=== PATIENT | female | born 1970 ===

== ENCOUNTER 2017-03-24 11:38 | Emergency (ER) | payer OTHER ==
[2017-03-24 11:43] VITALS: BMI 26.4
[2017-03-24 11:44] VITALS: BP 132/90; PULSE 90; RESP 18; TEMP 98.5; O2SAT 100
--- NOTE | 2017-03-24 12:18 | C.PDOC ---
History Of Present Illness Pt c/o left eye redness this morning. She has been having URI symptoms for the past 3 days. Time Seen by Provider: 03/24/17 12:07 Chief Complaint (Nursing): ENT Problem History Per: Patient Current Symptoms Are (Timing): Still Present Injury To Eye?: No Severity: Moderate Associated Symptoms: Other (Redness/irritation) Additional History Per: Prior Records Past Medical History Reviewed: Historical Data, Nursing Documentation, Vital Signs Vital Signs: Last Vital Signs Temp 98.5 F 03/24/17 11:43 Pulse 90 03/24/17 11:43 Resp 18 03/24/17 11:43 BP 132/90 03/24/17 11:43 Pulse Ox 100 03/24/17 11:43 - Medical History PMH: Migraine - [facility] Procedures APPLICATION OF SPLINT (06/26/14) DX ULTRASOUND NEC (01/14/13) OTHER THERAPEUTIC APHERESIS (01/14/13) SOFT TISSUE INJECT NEC (01/14/13) Family History: States: Unknown Family Hx - Social History Hx Tobacco Use: No Hx Alcohol Use: No Hx Substance Use: No - Immunization History Hx Tetanus Toxoid Vaccination: Yes Hx Influenza Vaccination: Yes Hx Pneumococcal Vaccination: No Review Of Systems Except As Marked, All Systems Reviewed And Found Negative. Constitutional: Negative for: Fever, Weakness Eyes: Positive for: Conjunctivae Inflammation (left) ENT: Positive for: Ear Pain, Nose Congestion, Throat Pain. Negative for: Ear Discharge Cardiovascular: Negative for: Chest Pain Respiratory: Positive for: Cough. Negative for: Shortness of Breath Gastrointestinal: Negative for: Vomiting, Abdominal Pain Musculoskeletal: Negative for: Neck Pain Skin: Negative for: Rash Neurological: Negative for: Weakness, Numbness, Seizures Physical Exam - Physical Exam Appears: Non-toxic, No Acute Distress Skin: Normal Color, Warm, Dry, No Rash Head: Atraumatic, Normacephalic Eye(s): bilateral: PERRL, EOMI, left: Other (Conjunctival injection) Ear(s): Bilateral: Normal Oral Mucosa: Moist, No Drooling, No Trismus Throat: Normal Neck: Normal ROM, Supple Lymphatic: No Adenopathy Cardiovascular: Rhythm Regular Respiratory: Normal Breath Sounds, No Accessory Muscle Use Gastrointestinal/Abdominal: Soft, No Tenderness Back: No CVA Tenderness Extremity: Normal ROM Neurological/Psych: Oriented x3, Normal Speech, Normal Motor, Normal Sensation ED Course And Treatment O2 Sat by Pulse Oximetry: 100 Pulse Ox Interpretation: Normal Disposition Counseled Patient/Family Regarding: Diagnosis, Need For Followup, Rx Given - Disposition Referrals: Jacobo Moran MD [Staff Provider] - Disposition: HOME/ ROUTINE Disposition Time: 12:19 Condition: STABLE Additional Instructions: Follow up with employee health. Return to the ER if you develop shortness of breath, worsening of symptoms or if you have any other concerns. Prescriptions: Polymyxin/Trimethoprim Sulfate [Polytrim Ophth Soln] 1 - 2 drop OS QID #1 bottle Instructions: Conjunctivitis (ED) Forms: [employer] [facility] (Arabic) - Clinical Impression Clinical Impression: URI (upper respiratory infection), Conjunctivitis, left eye
== END 2017-03-24 12:30 | disposition home or self-care (01) ==
LOC: C.ER 11:38
DX: J06.9 Acute upper respiratory infection, unspecified (principal); H10.9 Unspecified conjunctivitis

== ENCOUNTER 2017-03-25 08:16 | Emergency (ER) | payer OTHER ==
[2017-03-25 08:16] VITALS: BMI 26.4
[2017-03-25 08:29] VITALS: BP 131/98; PULSE 93; RESP 16; TEMP 98.5; O2SAT 98
--- NOTE | 2017-03-25 08:48 | C.PDOC ---
History Of Present Illness 46 y/o female, eveluated in ER and discharged yesterday for conjunctivitis, presents to ED with c/o right eye redness. Patient states she was prescribed eyedrops and is asking if she should apply to the right eye now. 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 Denies fever, chills, headache, visual changes, discharge from eye, cough, nausea, vomiting, or other associated symptoms. Time Seen by Provider: 03/25/17 08:19 Chief Complaint (Nursing): ENT Problem History Per: Patient History/Exam Limitations: no limitations Onset/Duration Of Symptoms: Days Current Symptoms Are (Timing): Still Present Injury To Eye?: No Wears Contact Lens?: No Recent travel outside of the [place]: No Past Medical History Reviewed: Historical Data, Nursing Documentation, Vital Signs Vital Signs: Last Vital Signs Temp 98.5 F 03/25/17 08:25 Pulse 93 H 03/25/17 08:25 Resp 16 03/25/17 08:25 BP 131/98 H 03/25/17 08:25 Pulse Ox 98 03/25/17 08:59 - Medical History PMH: No Chronic Diseases, Migraine Denies: Chronic Kidney Disease Surgical History: No Surg Hx - [facility] Procedures APPLICATION OF SPLINT (06/26/14) DX ULTRASOUND NEC (01/14/13) OTHER THERAPEUTIC APHERESIS (01/14/13) SOFT TISSUE INJECT NEC (01/14/13) Family History: States: Unknown Family Hx - Social History Hx Tobacco Use: No Hx Alcohol Use: No Hx Substance Use: No - Immunization History Hx Tetanus Toxoid Vaccination: Yes Hx Influenza Vaccination: Yes Hx Pneumococcal Vaccination: No Review Of Systems Except As Marked, All Systems Reviewed And Found Negative. Constitutional: Negative for: Fever, Chills Eyes: Positive for: Conjunctivae Inflammation, Redness ENT: Negative for: Ear Pain, Throat Pain Respiratory: Negative for: Cough Neurological: Negative for: Headache, Dizziness Physical Exam - Physical Exam Appears: Non-toxic, No Acute Distress Skin: Warm, Dry Head: Atraumatic, Normacephalic Eye(s): bilateral: PERRL, EOMI, Other (bilateral conjunctival injection) Ear(s): Bilateral: Normal Nose: Normal Oral Mucosa: Moist Throat: Normal, No Erythema, No Exudate Neck: Supple Neurological/Psych: Oriented x3, Normal Speech, Normal Cognition Gait: Steady ED Course And Treatment O2 Sat by Pulse Oximetry: 98 (RA) Pulse Ox Interpretation: Normal Progress Note: On reassessment, patient is resting comfortably, and is in no acute distress. Patient instructed to follow up with clinic/PMD within 1-2 days and apply eye drops as directed. Work note provided. Disposition - Disposition Referrals: [facility] [Outside] [facility] [Outside] Disposition: HOME/ ROUTINE Disposition Time: 09:00 Condition: STABLE Additional Instructions: Continue current eye drops in both eyes as directed Instructions: Conjunctivitis (ED) Forms: [employer] (Indonesian), Work Excuse - POA Present On Arrival: None - Clinical Impression Clinical Impression: Conjunctivitis - PA / SMUTTER / Resident Statement MD/DO has reviewed & agrees with the documentation as recorded. - Scribe Statement The provider has reviewed the documentation as recorded by the Scribe SM All medical record entries made by the Scribe were at my direction and personally dictated by me. I have reviewed the chart and agree that the record accurately reflects my personal performance of the history, physical exam, medical decision making, and the department course for this patient. I have also personally directed, reviewed, and agree with the discharge instructions and disposition.
== END 2017-03-25 09:18 | disposition home or self-care (01) ==
LOC: C.ER 08:16
DX: H10.9 Unspecified conjunctivitis (principal)

== ENCOUNTER 2017-05-14 08:21 | Emergency (ER) | payer OTHER ==
[2017-05-14] MEDS ORDERED: Acetaminophen-Codeine 300/30 mg Tab PO STA (08:39)
[2017-05-14 08:40] VITALS: BMI 27.3
[2017-05-14 08:41] VITALS: RESP 18
--- NOTE | 2017-05-14 08:41 | C.PDOC ---
History Of Present Illness 46 Y/O FEMALE C/O EXACERBATION OF R FOREARM PAIN SINCE YESTERDAY. PT REPORTS SIMILAR SYMPTOMS TO October, - PREVIOUS DIAGNOSIS OF R FOREARM STRAIN BY DR DE LA CRUZ. PT NOTES SHE WAS MOPPING AND CARRYING THINGS YESTERDAY AND THEN FELT PAIN AND SWELLING TO R FOREARM AREA. PT NOTES PAIN WORSE WITH MOVEMENT. DENIES NEW WEAKNESS, NUMBNESS, TRAUMA, OR OTHER ASSOCIATED SX. EXAM: R FOREARM SWELLING, DIFFUSE TENDERNESS, NO DEFORMITY Time Seen by Provider: 05/14/17 08:28 Chief Complaint (Nursing): Upper Extremity Problem/Injury History Per: Patient History/Exam Limitations: no limitations Onset/Duration Of Symptoms: Days Current Symptoms Are (Timing): Still Present Quality: "Pain" Recent travel outside of the [place]: No Past Medical History Reviewed: Historical Data, Nursing Documentation, Vital Signs Vital Signs: Last Vital Signs Temp 97.7 F 05/14/17 08:24 Pulse 90 05/14/17 08:24 Resp 18 05/14/17 08:24 BP 150/90 05/14/17 08:24 Pulse Ox 98 05/14/17 08:41 - Medical History PMH: Migraine - [facility] Procedures APPLICATION OF SPLINT (06/26/14) DX ULTRASOUND NEC (01/14/13) OTHER THERAPEUTIC APHERESIS (01/14/13) SOFT TISSUE INJECT NEC (01/14/13) Family History: States: Unknown Family Hx - Social History Hx Tobacco Use: No Hx Alcohol Use: No Hx Substance Use: No - Immunization History Hx Tetanus Toxoid Vaccination: Yes Hx Influenza Vaccination: Yes Hx Pneumococcal Vaccination: No Review Of Systems Except As Marked, All Systems Reviewed And Found Negative. Musculoskeletal: Positive for: Arm Pain (R FOREARM) Skin: Negative for: Rash Neurological: Negative for: Weakness, Numbness Physical Exam - Physical Exam Appears: Non-toxic, No Acute Distress Skin: Normal Color, Warm, Dry Head: Atraumatic, Normacephalic Extremity: Normal ROM, Tenderness (DIFFUSE, R FOREARM), Capillary Refill (< 2 SEC.), No Deformity, Swelling (DIFFUSE, R FOREARM) Extremity: Bilateral: Normal Color And Temperature Pulses: Left Radial: Normal, Right Radial: Normal Neurological/Psych: Oriented x3, Normal Speech, Normal Cognition, Normal Motor, Normal Sensation ED Course And Treatment O2 Sat by Pulse Oximetry: 98 (RA) Pulse Ox Interpretation: Normal Progress - Re-Evaluation Re-evaluation Note: 05/14/17 08:39 PLAN: NSAIDS, VOLAR SPLINT. 05/14/17 08:50 PT RESTING COMFORTABLY WITH IMPROVEMENT OF PAIN. ADVISED ORTHO FOLLOW UP AND RICE. - Data Reviewed Data Reviewed: Old records Disposition Counseled Patient/Family Regarding: Diagnosis, Need For Followup, Rx Given - Disposition Referrals: Charanjit De La Cruz MD [Staff Provider] - Disposition: HOME/ ROUTINE Disposition Time: 08:40 Condition: IMPROVED Prescriptions: Acetaminophen/Cod NO 4 [Tylenol/Cod 300 mg-60 mg] 1 tab PO Q4 PRN #20 tab PRN Reason: Pain, Moderate (4-7) Ibuprofen [Motrin] 600 mg PO Q6 #30 tab Instructions: Sprain (ED) Forms: [facility] (Irish), Work Excuse - Clinical Impression Clinical Impression: Forearm sprain - Scribe Statement The provider has reviewed the documentation as recorded by the Scribe SM All medical record entries made by the Scribe were at my direction and personally dictated by me. I have reviewed the chart and agree that the record accurately reflects my personal performance of the history, physical exam, medical decision making, and the department course for this patient. I have also personally directed, reviewed, and agree with the discharge instructions and disposition. Orthopedic Care Application Of:: Volar Splint (APPLIED BY DOCTOR OF OPTOMETRY)
[2017-05-14] MEDS ORDERED: Acetaminophen-Codeine 300/30 mg Tab PO ONE (09:14)
[2017-05-14 09:18] VITALS: BP 132/93; PULSE 79; TEMP 98.1; O2SAT 97
== END 2017-05-14 09:18 | disposition home or self-care (01) ==
LOC: C.ER 08:21
DX: S63.501A Unspecified sprain of right wrist, initial encounter (principal); X58.XXXA Exposure to other specified factors, initial encounter; Y93.E5 Activity, floor mopping and cleaning
CPT/HCPCS: 29125; 96372; 99285; J1885

== ENCOUNTER 2017-08-31 09:13 | Emergency (ER) | payer OTHER ==
[2017-08-31 09:13] VITALS: BMI 26.4
[2017-08-31 09:20] VITALS: RESP 18
[2017-08-31] MEDS ORDERED: Apap-Butalbital-Caffeine 325-50-40mg Tab PO STA (10:04)
[2017-08-31] MEDS ORDERED: Apap-Butalbital-Caffeine 325-50-40mg Tab ONE ×2 (10:15→10:17)
[2017-08-31 10:27] VITALS: BP 139/88; PULSE 76; TEMP 97.9; O2SAT 99
--- NOTE | 2017-08-31 11:29 | C.PDOC ---
Time Seen by Provider: 08/31/17 09:59 Chief Complaint (Nursing): Headache History Per: Patient Onset/Duration Of Symptoms: Days (about 1 week), Intermittent Episodes Current Symptoms Are (Timing): Still Present Severity: Moderate Quality: Other (Throbbing) Associated Symptoms: Nausea Additional History Per: Prior Records Past Medical History Reviewed: Historical Data, Nursing Documentation, Vital Signs Vital Signs: Last Vital Signs Temp 97.9 F 08/31/17 10:25 Pulse 76 08/31/17 10:25 Resp 18 08/31/17 10:25 BP 139/88 08/31/17 10:25 Pulse Ox 99 08/31/17 10:25 - Medical History PMH: Migraine - [facility] Procedures APPLICATION OF SPLINT (06/26/14) DX ULTRASOUND NEC (01/14/13) OTHER THERAPEUTIC APHERESIS (01/14/13) SOFT TISSUE INJECT NEC (01/14/13) Family History: States: Unknown Family Hx - Social History Hx Tobacco Use: No Hx Alcohol Use: Yes Hx Substance Use: No - Immunization History Hx Tetanus Toxoid Vaccination: Yes Hx Influenza Vaccination: Yes (04/2017) Hx Pneumococcal Vaccination: No Review Of Systems Except As Marked, All Systems Reviewed And Found Negative. Constitutional: Negative for: Fever, Weakness Cardiovascular: Negative for: Chest Pain Respiratory: Negative for: Shortness of Breath Gastrointestinal: Negative for: Vomiting, Abdominal Pain Musculoskeletal: Negative for: Neck Pain Skin: Negative for: Rash Neurological: Positive for: Headache. Negative for: Weakness, Numbness, Seizures, Altered Mental Status Physical Exam - Physical Exam Appears: Non-toxic, No Acute Distress Skin: Normal Color, Warm, Dry, No Rash Head: Atraumatic, Normacephalic Eye(s): bilateral: Normal Inspection, PERRL, EOMI Neck: Normal ROM, Supple Cardiovascular: Rhythm Regular Respiratory: Normal Breath Sounds, No Accessory Muscle Use Gastrointestinal/Abdominal: Soft, No Tenderness Extremity: Normal ROM Neurological/Psych: Oriented x3, Normal Speech, Normal Cognition, Normal Cranial Nerves, No Cerebellar Signs, Normal Motor, Normal Sensation ED Course And Treatment O2 Sat by Pulse Oximetry: 99 Pulse Ox Interpretation: Normal Progress Note: Pt feels better after meds and wants to go home. Reassessment Condition: Improved Disposition Counseled Patient/Family Regarding: Diagnosis, Need For Followup, Rx Given - Disposition Referrals: Jacobo Moran MD [Staff Provider] - Disposition: HOME/ ROUTINE Disposition Time: 11:28 Condition: IMPROVED Additional Instructions: Follow up with your doctor this week for further evaluation and treatment. Return to the ER if you develop fever, neck pain, vomiting, weakness, numbness, worsening of symptoms or if you have any other concerns. Prescriptions: Acetaminophen/Butalbital/Caf [Fioricet] 1 tab PO TID PRN #20 tab PRN Reason: Headache Instructions: Migraine Headache (ED) - Clinical Impression Clinical Impression: Headache
== END 2017-08-31 11:36 | disposition home or self-care (01) ==
LOC: C.ER 09:13
DX: R51 Headache (principal)

== ENCOUNTER 2018-08-08 18:52 | Emergency (ER) | payer OTHER ==
[2018-08-08 18:52] VITALS: BMI 26.4
[2018-08-08 18:59] VITALS: BP 137/93; PULSE 90; RESP 18; TEMP 98; O2SAT 99
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
== END 2018-08-08 19:43 | disposition home or self-care (01) ==
LOC: C.ER 18:52
DX: M54.6 Pain in thoracic spine (principal); V49.59XA Passenger injured in collision with other motor vehicles in traffic accident, initial encounter; Y92.410 Unspecified street and highway as the place of occurrence of the external cause